=== PATIENT | female | born 1940 | race Caucasian/White ===

== ENCOUNTER → 2017-04-07 | Day surgery (SDC) | payer OTHER ==
[2017-03-13 10:33] VITALS: Ht 157.5 cm; Wt 65.9 kg
[~2017-04-07] VITALS: Ht 157.5 cm; Wt 65.9 kg
[~2017-04-07] MED LIST: 500ML BSS 0.3ML EPI 1:1000PF IRRIG ONE; ACETAMINOPHEN 325 MG TAB PO PRN; AMVISC PLAIN 0.8ML SYRINGE INT OCU ONE; AMVISC PLUS 0.8ML SYRINGE INT OCU ONE; ASCA500 PO; ATROPINE SULFATE 0.1 MG/ML 5ML SYR IV PRN; BSS FLUSH ONE; CHOL1000 PO; EpHEDrine SULFATE INJ 50 MG/ML AMP IV PRN; EpINEphrine INJ 1MG/ML AMP 1 MG/ML AMP ONE; LACTATED RINGER'S 1000ML 500 ML IV SCH; LIDOCAINE 3.5% OPH GEL PER APPLICATION CHARGE ONE; LIDOCAINE HCL 1% MPF 2 ML VIAL ONE; MELA1TAB22 PO; MIDAZOLAM HCL 1 MG/ML 2ML VIAL ONE; MULT-506 PO; OMEG10007 PO; POVIDONE-IODINE OP SOLN 30 ML BTL ONE; PROPARACAINE 0.5% OP SOLN PER DROP CHARGE OPL SCH; TOBRAMYCIN/DEXAMETHASONE OPH OINT PER APPLN CHARGE ONE
[2017-04-07] MEDS: PHENYLEPHRINE HCL 2.5% OP SOLN PER DROP CHARGE OPL SCH ×2 (10:23→10:28)
[2017-04-07] MEDS: TROPICAMIDE 1% OP SOLN PER DROP CHARGE OPL SCH ×2 (10:24→10:29)
[2017-04-07] MEDS: CYCLOPENTOLATE HCL 1% OP SOLN PER DROP CHARGE OPL SCH ×2 (10:25→10:30)
[2017-04-07] MEDS: KETOROLAC 0.5% OP SOLN PER DROP CHARGE OPL SCH ×2 (10:26→10:31)
[2017-04-07] MEDS: GATIFLOXACIN OP SOLN PER DROP CHARGE OPL SCH ×2 (10:27→10:39)
--- NOTE | 2017-04-07 10:35 | History & Physical Bridge - [place] ---
H&P Re-Evaluation Bridge Note: I have examined the patient, reviewed the History & Physical and in the interval since the performance of the History & Physical I have noted the following changes of clinical significance: Diagnosis: Left Cataract Procedure: Left Cataract Removal with Lens Implant No changes noted
--- NOTE | 2017-04-07 11:08 | [facility] Operative Report ---
Operative Report Date of Service Apr 07, 2017. Operative Report 1. PREOPERATIVE DIAGNOSIS: Cataract of the left eye. 2. POSTOPERATIVE DIAGNOSIS: Same. 3. PROCEDURE: Phacoemulsification with intraocular lens implantation of the left eye. SURGEON: Dr. Harjinder Olivares. ANESTHESIA: Topical Lidocaine gel, 1% Non- Preserved intracameral Lidocaine, and monitored intravenous sedation. INDICATIONS FOR THE PROCEDURE: The patient is a 76 - year-old female with a history of cataract of the left eye causing significant visual impairment. The details of the proposed procedure were explained to the patient who asked appropriate questions and following discussion of all risks, benefits and alternatives agreed to have the procedure done. Patient had corneal astigmatism and therefore elected to have a toric lens placed. 4. OPERATION AND FINDINGS: DESCRIPTION OF PROCEDURE: After informed consent was obtained, the patient was placed in an upright position and the cornea was marked at 76 degrees using the [employer] corneal marking tool. The patient was brought to the Operating Room at the [facility]. The patient was placed in a supine position and then the left eye was prepped and draped in the usual sterile fashion for intraocular surgery. A drop of topical Lidocaine gel was placed in the operative eye. A wire lid speculum was then placed in the fornices. A corneal paracentesis was then created temporally. The Non-Preserved Lidocaine was then instilled into the anterior chamber. The anterior chamber was then pressurized with viscoelastic. A 2.0 mm clear corneal incision was then created temporally. A cystotome was inserted into the anterior chamber and used to create a tear in the anterior lens capsule. This capsular tear was then used to create a small flap and the flap was dragged in a counterclockwise direction in order to create a continuous curvilinear capsulorrhexis. Hydrodissection was accomplished with balanced salt solution. Phacoemulsification of the lens nucleus was then performed in a standard [id number] technique. The phaco time was 33 seconds with an average power of 17 %. The remaining cortical material was removed using irrigation aspiration. The capsular bag was then filled with viscoelastic. A Caleb [id number] +13.5 diopters lens was then loaded into the injector and injected into the capsular bag. The lens was aligned with the previously made corneal gutierrez. The remaining viscoelastic was removed with the irrigation aspiration handpiece. The wound was hydrated and then checked and found to be watertight. The intraocular pressure was checked and found to be adequate. The wire lid speculum was removed and the patient's face was cleaned and dried. TobraDex ointment was placed in the inferior fornix. The patient was discharged to the Recovery Room having tolerated the procedure well. There were no complications. The patient will be seen tomorrow in the office for follow-up. I attest to the content of the Intraoperative Record and any orders documented therein. Any exceptions are noted below.
--- NOTE | 2017-04-07 11:09 | Discharge Instructions-SurgCtr ---
Discharge Instructions Date of Service Apr 07, 2017. Visit Reason for Visit: Cataract Left Eye Discharge Discharge Diagnosis / Problem: cataract Discharge Goals Goal(s): Improve function Activity Recommendations Activity Limitations: per Instructions/Follow-up section Anesthesia . Post Anesthesia Instructions: If you have had General Anesthesia or IV Sedation: * Do not drive today. * Resume driving when surgeon permits. * Do not make important decisions or sign legal documents today. * Call surgeon for: 1. Temperature elevations greater than 101 degrees F. 2. Uncontrollable pain. 3. Excessive bleeding. 4. Persistent nausea and vomiting. 5. Medication intolerance (nausea, vomiting or rash). * For nausea and vomiting use only clear liquids such as: tea, soda, bouillon until nausea subsides, then gradually increase diet as tolerated. * If you have any concerns or questions, call your surgeon's office. If physician is unavailable and it is an emergency, call 911 or go to the nearest emergency room. . Diet Recommendations Home Diet: resume previous diet Procedures Procedures Performed: Left Cataract Phacoemulsification With Intraocular Lens Implant; Toric Lens Pending Studies Studies pending at discharge: no Medical Emergencies . Who to Call and When: Medical Emergencies: If at any time you feel your situation is an emergency, please call 911 immediately. . Non-Emergent Contact Non-Emergency issues call your: Senior Benefits Manager . . "Provider Documentation" section prepared by Harjinder Olivares. .
[2017-04-07 11:10] VITALS: TEMP 36.4
--- NOTE | 2017-04-07 11:27 | Anesthesia Progress Nt - [facility] ---
Anesthesia Post Op Note Date & Time Apr 07, 2017 at 11:26 Vital Signs Pain Intensity: 0 Vital Signs Past 12 Hours Date Time Temp Pulse Resp B/P (MAP) Pulse Ox O2 Delivery O2 Flow Rate FiO2 04/07/17 11:10 36.4 58 16 132/84 (100) 97 Room Air 04/07/17 10:15 36.8 54 22 118/84 (95) 97 Room Air Notes Mental Status: alert / awake / arousable, participated in evaluation Pt Amnestic to Procedure: Yes Nausea / Vomiting: adequately controlled Pain: adequately controlled Airway Patency, RR, SpO2: stable & adequate BP & HR: stable & adequate Hydration State: stable & adequate Anesthetic Complications: no major complications apparent
[2017-04-07 11:32] VITALS: BP 133/72; PULSE 63; O2SAT 100
== END | disposition home or self-care (01) ==
LOC: X.SURG 09:41
PROVIDERS: ATTEND Ophthalmology
DX: H26.9 Unspecified cataract (principal); Z87.891 Personal history of nicotine dependence

== ENCOUNTER → 2017-04-21 | Day surgery (SDC) | payer OTHER ==
[2017-04-14 09:44] VITALS: Ht 157.5 cm; Wt 65.9 kg
[~2017-04-21] VITALS: Ht 157.5 cm; Wt 65.9 kg
[~2017-04-21] MED LIST changes: +PHENYLEPHRINE HCL 10% OP SOLN PER DROP CHARGE OPR SCH; -PROPARACAINE 0.5% OP SOLN PER DROP CHARGE OPL SCH; +PROPARACAINE 0.5% OP SOLN PER DROP CHARGE OPR SCH
[2017-04-21] MEDS: PHENYLEPHRINE HCL 2.5% OP SOLN PER DROP CHARGE OPR SCH ×2 (09:34→09:39)
[2017-04-21] MEDS: TROPICAMIDE 1% OP SOLN PER DROP CHARGE OPR SCH ×2 (09:35→09:40)
[2017-04-21] MEDS: CYCLOPENTOLATE HCL 1% OP SOLN PER DROP CHARGE OPR SCH ×2 (09:36→09:41)
[2017-04-21] MEDS: KETOROLAC 0.5% OP SOLN PER DROP CHARGE OPR SCH ×2 (09:37→09:42)
[2017-04-21] MEDS: GATIFLOXACIN OP SOLN PER DROP CHARGE OPR SCH ×2 (09:38→09:47)
--- NOTE | 2017-04-21 10:00 | History & Physical Bridge - [place] ---
H&P Re-Evaluation Bridge Note: I have examined the patient, reviewed the History & Physical and in the interval since the performance of the History & Physical I have noted the following changes of clinical significance Diagnosis: Right Cataract Procedure: Right Cataract Removal with Lens Implant No changes noted
--- NOTE | 2017-04-21 10:31 | [facility] Operative Report ---
Operative Report Date of Service Apr 21, 2017. Operative Report 1. PREOPERATIVE DIAGNOSIS: Cataract of the right eye. 2. POSTOPERATIVE DIAGNOSIS: Same. 3. PROCEDURE: Phacoemulsification with intraocular lens implantation of the right eye. SURGEON: Dr. Harjinder Olivares. ANESTHESIA: Topical Lidocaine gel, 1% Non- Preserved intracameral Lidocaine, and monitored intravenous sedation. INDICATIONS FOR THE PROCEDURE: The patient is a 76 - year-old female with a history of cataract of the right eye causing significant visual impairment. The details of the proposed procedure were explained to the patient who asked appropriate questions and following discussion of all risks, benefits and alternatives agreed to have the procedure done. Patient had corneal astigmatism and therefore elected to have a toric lens placed. 4. OPERATION AND FINDINGS: DESCRIPTION OF PROCEDURE: After informed consent was obtained, the patient was placed in an upright position and the cornea was marked at 99 degrees using the [employer] corneal marking tool. The patient was brought to the Operating Room at the [facility]. The patient was placed in a supine position and then the right eye was prepped and draped in the usual sterile fashion for intraocular surgery. A drop of topical Lidocaine gel was placed in the operative eye. A wire lid speculum was then placed in the fornices. A corneal paracentesis was then created temporally. The Non-Preserved Lidocaine was then instilled into the anterior chamber. The anterior chamber was then pressurized with viscoelastic. A 2.0 mm clear corneal incision was then created temporally. A cystotome was inserted into the anterior chamber and used to create a tear in the anterior lens capsule. This capsular tear was then used to create a small flap and the flap was dragged in a counterclockwise direction in order to create a continuous curvilinear capsulorrhexis. Hydrodissection was accomplished with balanced salt solution. Phacoemulsification of the lens nucleus was then performed in a standard [id number] technique. The phaco time was 27 seconds with an average power of 18 %. The remaining cortical material was removed using irrigation aspiration. The capsular bag was then filled with viscoelastic. A Caleb [id number] +14.5 diopters lens was then loaded into the injector and injected into the capsular bag. The remaining viscoelastic was removed with the irrigation aspiration handpiece. The lens was aligned with the previously made corneal gutierrez. The wound was hydrated and then checked and found to be watertight. The intraocular pressure was checked and found to be adequate. The wire lid speculum was removed and the patient's face was cleaned and dried. TobraDex ointment was placed in the inferior fornix. The patient was discharged to the Recovery Room having tolerated the procedure well. There were no complications. The patient will be seen tomorrow in the office for follow-up. I attest to the content of the Intraoperative Record and any orders documented therein. Any exceptions are noted below.
[2017-04-21 10:32] VITALS: TEMP 36.4
--- NOTE | 2017-04-21 10:32 | Discharge Instructions-SurgCtr ---
Discharge Instructions Date of Service Apr 21, 2017. Visit Reason for Visit: Cataract Right Eye Discharge Discharge Diagnosis / Problem: cataract Discharge Goals Goal(s): Improve function Activity Recommendations Activity Limitations: per Instructions/Follow-up section Anesthesia . Post Anesthesia Instructions: If you have had General Anesthesia or IV Sedation: * Do not drive today. * Resume driving when surgeon permits. * Do not make important decisions or sign legal documents today. * Call surgeon for: 1. Temperature elevations greater than 101 degrees F. 2. Uncontrollable pain. 3. Excessive bleeding. 4. Persistent nausea and vomiting. 5. Medication intolerance (nausea, vomiting or rash). * For nausea and vomiting use only clear liquids such as: tea, soda, bouillon until nausea subsides, then gradually increase diet as tolerated. * If you have any concerns or questions, call your surgeon's office. If physician is unavailable and it is an emergency, call 911 or go to the nearest emergency room. . Diet Recommendations Home Diet: resume previous diet Procedures Procedures Performed: Right Cataract Phacoemulsification With Intraocular Lens Implant; Toric Lens Pending Studies Studies pending at discharge: no Medical Emergencies . Who to Call and When: Medical Emergencies: If at any time you feel your situation is an emergency, please call 911 immediately. . Non-Emergent Contact Non-Emergency issues call your: Windshield Repair Technician . . "Provider Documentation" section prepared by Harjinder Olivares. .
[2017-04-21 10:52] VITALS: BP 106/65; PULSE 67; O2SAT 99
--- NOTE | 2017-04-21 10:53 | Anesthesia Progress Nt - [facility] ---
Anesthesia Post Op Note Date & Time Apr 21, 2017 at 10:53 Vital Signs Pain Intensity: 0 Vital Signs Past 12 Hours Date Time Temp Pulse Resp B/P (MAP) Pulse Ox O2 Delivery O2 Flow Rate FiO2 04/21/17 10:32 36.4 57 16 119/73 (88) 95 Room Air 04/21/17 09:28 36.9 63 16 124/83 (97) 95 Room Air Notes Mental Status: alert / awake / arousable, participated in evaluation Pt Amnestic to Procedure: Yes Nausea / Vomiting: adequately controlled Pain: adequately controlled Airway Patency, RR, SpO2: stable & adequate BP & HR: stable & adequate Hydration State: stable & adequate Anesthetic Complications: no major complications apparent
== END | disposition home or self-care (01) ==
LOC: X.SURG 08:56
PROVIDERS: ATTEND Ophthalmology
DX: H26.9 Unspecified cataract (principal); M19.90 Unspecified osteoarthritis, unspecified site; Z98.890 Other specified postprocedural states; Z98.42 Cataract extraction status, left eye; Z88.1 Allergy status to other antibiotic agents; Z87.891 Personal history of nicotine dependence

== ENCOUNTER 2023-09-08 06:27 | Observation (INO) ==
--- NOTE | 2023-07-29 12:03 | PAT Medication Instructions ---
Medication Instructions Date of Service July 29, 2023 Home Medications multivitamin with minerals (Multiple Vitamin-Minerals tablet) 1 tab PO QAM amlodipine 5 mg tablet 5 mg PO QAM atorvastatin 10 mg tablet 10 mg PO HS cetirizine 10 mg capsule (Zyrtec) 10 mg PO DAILY PRN guaifenesin 600 mg tablet, extended release 12 hr (Mucinex) 600 mg PO Q12H PRN magnesium oxide 400 mg PO QAM biotin 5 mg tablet 5 mg PO QAM calcium carbonate 600 mg-vitamin D3 5 mcg (200 unit) tablet 1 tab PO QAM ibuprofen 200 mg tablet (Advil) 200 mg PO Q6H PRN levothyroxine 25 mcg tablet 25 mcg PO QAM ASK your surgeon for instructions ibuprofen 200 mg tablet (Advil) 200 mg PO Q6H PRN STOP taking 2 weeks before surgery (or as soon as possible if surgery is within 2 weeks) biotin 5 mg tablet 5 mg PO QAM DO NOT take the morning of surgery multivitamin with minerals (Multiple Vitamin-Minerals tablet) 1 tab PO QAM cetirizine 10 mg capsule (Zyrtec) 10 mg PO DAILY PRN guaifenesin 600 mg tablet, extended release 12 hr (Mucinex) 600 mg PO Q12H PRN magnesium oxide 400 mg PO QAM calcium carbonate 600 mg-vitamin D3 5 mcg (200 unit) tablet 1 tab PO QAM Take morning of surgery With a small sip of water, OTHERWISE NOTHING TO EAT OR DRINK AFTER MIDNIGHT: amlodipine 5 mg tablet 5 mg PO QAM levothyroxine 25 mcg tablet 25 mcg PO QAM Take evening before surgery atorvastatin 10 mg tablet 10 mg PO HS guaifenesin 600 mg tablet, extended release 12 hr (Mucinex) 600 mg PO Q12H PRN Other Notes If you have any questions please call us at [phone] or [phone] or [phone] or [phone]
--- NOTE | 2023-08-05 11:14 | Anesthesiology Consultation ---
Date of Service August 05, 2023 Assessment & Plan (1) Encounter for pre-operative examination: Chart Review Chart Review: Acceptable Risk for Surgery and Patient NOT seen in Pre Admission Testing - Patient is NOT an ideal OPJ candidate (currently 23 hour obs) Per PAT appt on 08/05/23, no recent illness/disease exposures, illness related symptoms, or recent illness/disease positive tests. Will leave to surgeon's discretion if preop Covid testing needed Patient seen by cardiology 04/22/23= seen for follow up on symptomatic short episodes of paroxysmal atrial tachycardia (average HR 130-150 bpm lasting upwards of 30 seconds), resting SB without evidence of chronotropic incompetence by Holter monitor 2021; preserved biventricular size and function by 2021 ECHO. Unfortunately recently diagnosed with adenocarcinoma of the lung after incidental finding on imaging. Started chemo yesterday; also doing XRT. Planning on having hip surgery after she gets through chemo. From cardiac perspective- patient is stable. Not having worsening palpitations; HR is too low for AV ladonna blockers. Will have repeat ECHO prior to starting durvalumab; EKG today reviewed. Would like to have hip surgery after chemo. Can ascend a flight of stairs and achieve 4 METS. Not having concerning anginal symptoms. Assuming her ECHO is stable, she is a moderate risk for cardiac complications perioperatively. She does not need further cardiac testing prior to surgery. Follow up in six months ( ECHO from 06/2023 showed no acute issues; no changes from 2021) Robotic Bronch with EBUS 03/03/23= Done under [facility] with Grade 1 view with Khan #2. ETT #8.0. Teaching & Discussion Pre-Anesthesia Teaching/Discussion Notes: Instructed NPO after midnight before surgery,except medications with 15 cc of water. Medication instructions provided according to the PAT guidelines. History Surgery Operation Date: 09/08/23 07:00 Proposed Procedures p Right Total Hip Arthroplasty - Riley Dee MD Height/Weight Height: 5 ft 1 in Weight: 63.2 kg Allergies Allergy/AdvReac Type Severity Reaction Status Date / Time tetracycline AdvReac Intermediate GI UPSET Verified 07/23/23 09:01 Medications Home Medications Medication Instructions Recorded Confirmed Last Taken multivitamin with minerals 1 tab PO QAM 09/11/20 07/23/23 03/02/23 09:00 (Multiple Vitamin-Minerals tablet) amlodipine 5 mg tablet 5 mg PO QAM 03/02/23 07/23/23 03/03/23 09:00 atorvastatin 10 mg tablet 10 mg PO HS 03/02/23 07/23/23 03/02/23 23:00 cetirizine 10 mg capsule (Zyrtec) 10 mg PO DAILY PRN seasonal 05/26/23 07/23/23 Unknown allergies guaifenesin 600 mg tablet, 600 mg PO Q12H PRN chest congestion 05/26/23 07/23/23 Unknown extended release 12 hr (Mucinex) magnesium oxide 400 mg PO QAM 06/04/23 07/23/23 Unknown biotin 5 mg tablet 5 mg PO QAM 07/23/23 07/23/23 Unknown calcium carbonate 600 mg-vitamin 1 tab PO QAM 07/23/23 07/23/23 Unknown D3 5 mcg (200 unit) tablet ibuprofen 200 mg tablet (Advil) 200 mg PO Q6H PRN Pain 07/23/23 07/23/23 Unknown levothyroxine 25 mcg tablet 25 mcg PO QAM 07/23/23 07/23/23 Unknown Past Medical History Medical History (Updated 08/06/23 @ 09:47 by Janie Patel, PA-C) Cardiac murmur no issues - follows with Dr Venegas mild to moderate TR per 2023 ECHO no significant cardiac murmur per 08/05/23 PAT appt History of COVID-27 February 2021 - mild flu symptoms. resolved. HTN (hypertension) Hyperlipidemia Hypothyroidism Malignant neoplasm of upper lobe of right lung - treated with chemotherapy and radiation. last treatment was 06/04/23. currently doing immunotherapy, last infusion on 07/21/23 [facility]. - currently stable Meningioma 10mm brain lesion per 02/2023 MRI- unchanged from 2021- typical findings for meningioma Per PCP record 12/17/21- did see neurosurgeon- suggested consideration of XRT but patient declines due to no symptoms Gets annual MRI of the brain Multicystic kidney disease Follows with [facility] Paroxysmal atrial tachycardia Chronic (20+ years); Follows with Dr. Venegas Stable and controlled Exercise / Class Metabolic Activity III < 4 Walking/Shop/Light housework (one flight of stairs - no chest pain, mild SOB (chronic)) Past Family History Family History Mother , 85yo Alzheimer disease Breast cancer Father , 94yo Prostate cancer PVD (peripheral vascular disease) Brother Epilepsy CREST variant of scleroderma Daughter No problems noted. Daughter No problems noted. Other No family history of adverse response to anesthesia Past Surgical History Surgical History History of bronchoscopy (03/03/23) Dr Henley at [facility] Hx of bilateral cataract extraction Hx of colonoscopy Past Anesthesia History No Hx of Anesthesia Complications History of PONV No Hx of PONV and No Hx of Motion Sickness Social History Smoking Status: Former smoker tobacco type: cigarettes Smoking cigarettes per day: 1 PPD x 40 yrs; Do You Dip or Chew Tobacco: No Smoking End Date: Hx Alcohol Use: No (hx- no longer drinks (quit 2009)) Hx Substance Use: No substance use type: does not use Review of Systems - Chronic palpitations - intermittent/mild- cardiology aware- stable - Chronic cough- due to heat- stable/mild Patient denies chest pain, shortness of breath, dyspnea on exertion, reflux, wheezing No hx of seizures, stroke, OR, apnea/snoring. No hx of blood clots or blood transfusions Physical Exam Vital Signs VITALS BP 101/69 (usually BP low normal- no symptoms per patient) P 70 TEMP 97.7 SP02 98% RESP 16 Constitutional no acute distress ENMT Mouth: + small oral opening; no TMJ clicking Thyromental Distance: > or= 3.5 Finger Breadths (3.5) Mallampati Class: III Neck neck extension not limited Respiratory normal respiratory effort; no respiratory distress Auscultation: lungs clear to auscultation bilaterally; no wheezes Cardiovascular Rate/Rhythm: regular rate and regular rhythm Heart Sounds: no murmur Vessels: no carotid bruit Musculoskeletal Spine: no pain with cervical ROM Extremities: extremities normal to inspection Psychiatric Orientation: alert Lab Results Anesthesia Preop Results Results Anesthesia Widget: WBC 6.73 K/ul (4.8-10.8) 08/05/23 Hgb 12.0 g/dl (12.0-16.0) 08/05/23 Hct 37.1 % (37.0-47.0) 08/05/23 Plt 347 K/uL (130-400) 08/05/23 Na 138 mmol/L (136-145) 07/20/23 K 4.5 mmol/L (3.5-5.1) 07/20/23 Cl 105 mmol/L (98-107) 07/20/23 CO2 27 mmol/L (21-32) 07/20/23 BUN 26 mg/dl (6-23) H 07/20/23 Creat 1.35 mg/dl (0.6-1.2) H 07/20/23 Glucose Level 95 mg/dl (70-99(Fasting)) 07/20/23 PT 10.5 Seconds (9.0-12.0) 08/05/23 PTT 29 Seconds (21-31) 08/05/23 INR 1.0 (0.9-1.1) 08/05/23 TSH 4.660 uIu/ml (0.300-4.500) H 07/20/23 Blood Type A Positive 08/05/23 Antibody Screen NEGATIVE 08/05/23 Testing Laboratory Results Mildly elevated creatinine- chronic and stable Minimally elevated TSH (improved from 06/22/23 - TSH 9.330 at that time) Electrocardiogram Date: 04/22/23 Findings: + SB @ (57bpm) and + no change from (July 12, 2021- per cardio ) Left axis deviation Chest X-Ray Date: 03/03/23 FINDINGS: Cardiac silhouette is enlarged. Pulmonary emphysema. Right upper lobe lesion redemonstrated with fiducial marker previously measured 4.4 cm on the prior CT. No postprocedural pneumothorax or pleural effusion. The bones appear grossly intact. Healed chronic left proximal humeral fracture deformity. IMPRESSION: 1. Right upper lobe mass redemonstrated, now with a fiducial marker status post biopsy. 2. No postprocedural pneumothorax. 3. Emphysema. (Patient declining updated CXR at [facility] appt 08/06/23- breathing stable, no acute issues on physical exam- will leave to anesthesiologist discretion DOS if repeat CXR needed) Echocardiogram Date: 06/22/23 EF: 60% LV Function: normal RWMA: + none Other Findings: + LVH (mild/concentric ) and + diastolic dysfunction (Grade I ) Normal RV size with low normal function Mild to moderate TR Normal estimated PASP, estimated PASP 28mmHg Compared to previous study 08/16/2021- no significant change Other Testing PET scan 03/25/23= Right upper lobe pulmonary nodule demonstrates FDG uptake. No evidence of metastatic disease is seen. Brain MRI 03/09/23= No acute intracranial abnormality. A 10 mm enhancing extra- axial lesion along the high left frontal convexity is unchanged and typical for a meningioma. There is no associated mass effect.
--- NOTE | 2023-09-04 13:26 | History & Physical Report ---
Date of Service September 04, 2023 Assessment & Plan (1) Arthritis of right hip: 83-year-old female with advanced right hip arthritis with a underlying known adenocarcinoma of the lung. Her hips are not significantly limiting her activities. She is undergoing treatment for this a lung cancer as well. Plan: We talked about treatment options. There is not a whole lot of conservative care that she can provided short of using assistive device. She does have this lung cancer issue which she is being treated for. After further discussion she like to proceed with hip replacement. I will proceed with a right total hip replacement. The risks Mente this procedure explained and she understands. Will likely use cement fixes stem due to osteoporosis. She is planning on being discharged to home using [facility]. She lives by herself but her daughter can assist in her care. Will plan on aspirin for DVT prophylaxis. (2) Malignant neoplasm of right upper lobe of lung: History of Present Illness Chief Complaint: . Progressive right hip pain. Primary Care Provider: Willow Yin MD . Patient is an 83-year-old female with who presents for right hip treatment. She has about a year to year and a half history of increasing progressive right groin and thigh in the hip pain that radiates down to her knee. Gotten markedly worse over the past 6 to 7 months. She is actually resorted to using a cane due to the pain. Says she is been quite active and this is really limited her mobility and lifestyle. She lives by herself and have more difficulty doing this. She like to have her right hip fixed. Allergies Allergy/AdvReac Type Severity Reaction Status Date / Time tetracycline AdvReac Intermediate GI UPSET Verified 08/26/23 15:29 Home Medications Medication Instructions Recorded Confirmed Type amlodipine 5 mg tablet 5 mg PO QAM 03/02/23 08/26/23 History atorvastatin 10 mg tablet 10 mg PO HS 03/02/23 08/26/23 History cetirizine 10 mg capsule (Zyrtec) 10 mg PO DAILY PRN seasonal 05/26/23 08/26/23 History allergies guaifenesin 600 mg tablet, 600 mg PO Q12H PRN chest congestion 05/26/23 08/26/23 History extended release 12 hr (Mucinex) magnesium oxide 400 mg PO QAM 06/04/23 08/26/23 History biotin 5 mg tablet 5 mg PO QAM 07/23/23 08/26/23 History calcium carbonate 600 mg-vitamin 1 tab PO QAM 07/23/23 08/26/23 History D3 5 mcg (200 unit) tablet ibuprofen 200 mg tablet (Advil) 200 mg PO Q6H PRN Pain 07/23/23 08/26/23 History levothyroxine 25 mcg tablet 25 mcg PO QAM 07/23/23 08/26/23 History Past Med/Surg History Problem List Arthritis of right hip History of bronchoscopy 03/03/23 Malignant neoplasm of right upper lobe of lung (Chronic 03/03/23) Multicystic kidney disease Follows with [facility] (creat normal per records) Medical History Cardiac murmur no issues - follows with Dr Venegas mild to moderate TR per 2023 ECHO no significant cardiac murmur per 08/05/23 PAT appt History of COVID-27 February 2021 - mild flu symptoms. resolved. Hypothyroidism Multicystic kidney disease Follows with [facility] Malignant neoplasm of upper lobe of right lung - treated with chemotherapy and radiation. last treatment was 06/04/23. currently doing immunotherapy, last infusion on 07/21/23 [facility]. - currently stable Meningioma 10mm brain lesion per 02/2023 MRI- unchanged from 2021- typical findings for meningioma Per PCP record 12/17/21- did see neurosurgeon- suggested consideration of XRT but patient declines due to no symptoms Gets annual MRI of the brain Hyperlipidemia Paroxysmal atrial tachycardia Chronic (20+ years); Follows with Dr. Venegas Stable and controlled HTN (hypertension) Surgical History History of bronchoscopy (03/03/23) Dr Henley at [facility] Hx of colonoscopy Hx of bilateral cataract extraction Family History Mother , 85yo Alzheimer disease Breast cancer Father , 94yo Prostate cancer PVD (peripheral vascular disease) Brother Epilepsy CREST variant of scleroderma Daughter No problems noted. Daughter No problems noted. Other No family history of adverse response to anesthesia Social History Smoking Status: Former smoker Tobacco Type: Cigarettes Cigarettes Per Day: 1 PPD x 40 yrs;; Second Hand Exposure: No; Do You Dip or Chew Tobacco: No; Hx Alcohol Use: No (hx- no longer drinks (quit 2009)) Hx Substance Use: No Preferred Language: Romansh Communication Ability: Effective Visual Impairment: No Limitations Hearing Ability: Normal Mail Technician Required: No Beliefs That Will Affect Care: None marital status: / Current Living Situation: Alone current occupational status: retired current occupation: Homemaker How many Children do You have: 2 Feels Safe at Home: Yes Diet: regular caffeine: Yes (2 cups/day) during the past year weight has: remained stable Assistive Devices: Hearing Aid - Bilateral Review of Systems All systems reviewed & are unremarkable except as noted in HPI & below. Physical Exam . Patient reveals a pleasant healthy spry female. Examination of the right hip reveal patient ambulates with a onto antalgic gait. She is about half centimeter shorter in the right compared to the left. She is got limited hip motion with pain. Internal rotation to neutral. No knee effusion. She is neurologically intact. Constitutional WD/WN, vitals as above Neck trachea midline, no thyromegaly Respiratory normal respiratory effort, lungs clear to auscultation Cardiovascular RRR, no murmur, no edema Gastrointestinal (Abdomen) normal bowel sounds, soft, nontender, no hepatosplenomegaly Results & Data Results & Data Laboratory Results . Diagnostic Findings . X-rays of the right hip were reviewed. Shows advanced hip arthritis. She got cystic changes on both sides of the joint. Complete loss of the joint space. At this is progressed markedly since her last films. Diffuse osteopenia. PG Care Time/CCT Total # of Minutes Spent Total Time Spent with Patient: Total time spent is greater than 50% in coordination of care (as documented) at patient's floor/unit and/or counseling patient: Coding Level of Care Code None Diagnoses Arthritis of right hip M16.11 Malignant neoplasm of right upper lobe of lung C34.11
[~2023-09-08 06:27] MED LIST changes: -500ML BSS 0.3ML EPI 1:1000PF IRRIG ONE; -ACETAMINOPHEN 325 MG TAB PO PRN; -AMVISC PLAIN 0.8ML SYRINGE INT OCU ONE; -AMVISC PLUS 0.8ML SYRINGE INT OCU ONE; -ASCA500 PO; -ATROPINE SULFATE 0.1 MG/ML 5ML SYR IV PRN; -BSS FLUSH ONE; +BUPIVACAINE 0.5 % 5 MG/1 ML PF 10ML VIAL ONE; -CHOL1000 PO; -EpHEDrine SULFATE INJ 50 MG/ML AMP IV PRN; -EpINEphrine INJ 1MG/ML AMP 1 MG/ML AMP ONE; -LACTATED RINGER'S 1000ML 500 ML IV SCH; -LIDOCAINE 3.5% OPH GEL PER APPLICATION CHARGE ONE; -LIDOCAINE HCL 1% MPF 2 ML VIAL ONE; -MELA1TAB22 PO; -MIDAZOLAM HCL 1 MG/ML 2ML VIAL ONE; -MULT-506 PO; -OMEG10007 PO; -PHENYLEPHRINE HCL 10% OP SOLN PER DROP CHARGE OPR SCH; -POVIDONE-IODINE OP SOLN 30 ML BTL ONE; -PROPARACAINE 0.5% OP SOLN PER DROP CHARGE OPR SCH; -TOBRAMYCIN/DEXAMETHASONE OPH OINT PER APPLN CHARGE ONE
--- NOTE | 2023-09-08 06:46 | History & Physical Bridge Note ---
Date of Service September 08, 2023 History & Physical Bridge Note I have examined the patient, reviewed the History & Physical and in the interval since the performance of the History & Physical I have noted the following changes of clinical significance: no changes noted
[2023-09-08] MEDS: ACETAMINOPHEN 500 MG TAB PO SCH ×2 (06:52→14:46)
[2023-09-08] MEDS: dexAMETHasone**PF** 10 MG/ML VIAL IV SCH (06:52)
[2023-09-08] MEDS: LR 60ML/HR IV SCH (06:53)
[2023-09-08] MEDS: FAMOTIDINE 20 MG TAB PO SCH (06:53)
[2023-09-08] MEDS: METOCLOPRAMIDE HCL 10 MG TABLET PO SCH (06:53)
[2023-09-08] MEDS: CeleBREX 200 MG CAP PO SCH (06:53)
[2023-09-08] MEDS: LR 500ML BOLUS, THEN 15ML/HR IV SCH (07:25)
[2023-09-08] MEDS ORDERED: ONDANSETRON INJ 2 MG/ML 2 ML VIAL IV PRN ×2 (08:05→13:29)
[2023-09-08] MEDS ORDERED: ePHEDrine sulfate 50 MG/ML AMP IV PRN (08:05)
[2023-09-08] MEDS ORDERED: fentaNYL citrate PF 100 MCG/2 ML VIAL IV PRN (08:05)
[2023-09-08] MEDS ORDERED: ATROPINE SULFATE 0.1 MG/ML 10ML SYR IV PRN (08:05)
[2023-09-08] MEDS ORDERED: MIDAZOLAM HCL 1 MG/ML 2ML VIAL ONE (08:38)
[2023-09-08] MEDS: TRANEXAMIC ACID 1,000 MG **IV Pre-op IV SCH (08:40)
[2023-09-08] MEDS: ceFAZolin 2000MG 2,000 MG/15 ML SYR IV SCH (09:01)
[2023-09-08] MEDS ORDERED: LIDOCAINE 2% 2 ML VIAL/AMP(20MG/ML) INFIL ONE (09:53)
[2023-09-08] MEDS ORDERED: PHENYLEPHRINE 100MCG/ML 10ML SYR IV ONE (09:53)
[2023-09-08] MEDS ORDERED: VASOPRESSIN 20 UNIT/ML VIAL ONE (09:53)
[2023-09-08] MEDS ORDERED: PROPOFOL IV EMULSION 10 MG/ML 20 ML VIAL IV ONE (09:53)
[2023-09-08] MEDS: BUPIVACAINE/EPINEPHRINE 0.5% MPF 1:200,000 30 ML VIAL ONE (09:56)
--- NOTE | 2023-09-08 11:10 | Operative Report ---
PG Post Operative Report Pre & Post Diagnosis Operation Date: 09/08/23 08:50 Pre-Op Diagnosis: Right Hip Degenerative Joint Disease Post-Op Diagnosis: Right Hip Degenerative Joint Disease I identified the patient and participated in the time-out.: Yes Procedure Operation Date: 09/08/23 08:50 Actual Procedures p Right Total Hip Arthroplasty, Cemented - Riley Dee MD Surgeon Riley Dee MD Pack Out Operator None Estimated Blood Loss 100 Findings Consistent with Post-Op Diagnosis Specimens Right femoral head sent for pathology Anesthesia Type Spinal MAC Complications none Disposition Accompanied Patient To Recovery: No Indications The patient is an 83-year-old fairly active and independent female who has developed increasing right hip pain discomfort over the past year. Discussed singly worse over the past 6 months. X-rays show advanced hip arthritis which has progressed over time. She failed conservative measures. She elected proceed with total hip arthroplasty. Description of Procedure Operative implants consist of: 1. Biomet G7 size 48 mm acetabular shell. 2. 6.5 cancellous acetabular screws 1 of 35 mm in length and 1 of 25 mm length. 3. Westhoff hole operational communication chief. 4. Highly cross-linked polyethylene liner with a 48 mm outer diameter and 32 mm inner diameter. 5. DePuy Comanche size 3 high offset cemented femoral stem. 6. +5/32 mm metal articular ball. The patient was taken the op room, identified, placed on the operating table in the supine position. All contractors were appropriately padded. IV antibiotics tried by anesthesia team. A spinal anesthetic and been implemented holding area. A Tiwari catheter was placed in sterile fashion. The patient was then placed in a left lateral decubitus position. Axillary roll was placed. A stool Birkett position was used for positioning. The right hip and leg were then prepped and draped in usual sterile fashion. A posterolateral approach to the right hip was then performed through a curvilinear incision centered over the greater trochanter. Sharp dissection was carried through subcutaneous tissue down over the IT band gluteal fascia but the IT band gluteal fascia was sized longitudinally in line with skin incision. The underlying greater bursa was excised. The piriformis and external rotators along with the posterior hip joint capsule were then released from the posterior aspect the hip as a single layer. Great care was taken throughout the procedure to protect the sciatic nerve at all times. The hip was internally rotated and dislocated. A femoral neck osteotomy cut was made with a Final Cut about 14 mm above the lesser trochanter. Femoral head was removed and sent for pathology. The femur was retracted anteriorly. Attention drawn the acetabulum. The acetabular labrum was excised. The pulmonary fat was excised. Sequential reaming the acetabular was then performed beginning with a size 43 and progressing up to 47. I reamed a little bit with a 48 reamer and then placed a 48 mm Biomet acetabular shell in about 40 degrees lateral opening and 20 degrees of anteversion. It was fixed with two 6.5 cancellous acetabular screws. A trial liner was placed. Attention drawn the femur. The proximal femur was entered with a Scyron cutter followed by canal finder. I did use a lateralizing reamer. I then broached beginning with a size 1 progressing up to go to. I could not quite fit the ringdown left. We did trial the hip with the size 2 implant. With the standard implant the soft tissue tension seemed a bit lax. I went to maximize her stability so we elected to use a high offset stem and use a size 3 stem. We trialed the hip and the hip was fully stable and in full extension and external rotation flexion to 90 degrees internal rotation over 40 degrees. Leg lengths appeared equal. Elect to place these implants. All trial implants were removed. An apex hole operational communication chief was placed. Highly cross-linked polyethylene liner was placed. A small cement restrictor was placed distally. A double batch Palacos G cement was mixed. I then injected the canal with the cement and a size 3 high offset Comanche femoral stem was placed. Once the cement hardened a +5/32 mm metal articular ball was placed. Hip was located and once again found to be stable. Attention drawn toward closing. The wound was irrigated with coconuts of normal saline. I did inject locally with 60 cc of half percent Marcaine with epinephrine. Posterior capsule and external rotators then repaired through drill holes in the posterior trochanter with #2 Tycron suture. The IT band gluteal fascia then closed in 1 PDS suture running fashion for subcutaneous tissue then closed with 2 Dexon suture in a buried interrupted fashion. Skin was closed skin bertha. Leg was then cleaned and dried and sterile Prevena VAC dressing was applied. The patient then transferred to the recovery room in stable condition. The patient tolerated the procedure well and there were no complications. I attest to the content of the Intraoperative Record and any orders documented therein. Any exceptions are noted below.
--- NOTE | 2023-09-08 11:52 | XRay Report ---
AP PELVIS, CROSSTABLE LATERAL RIGHT HIP History: Right total hip arthroplasty. Degenerative arthritis. Postop. FINDINGS: The patient is status post a right total hip arthroplasty. The hardware is intact. No fract ure or dislocation. Skin bertha are in place. IMPRESSION: Right total hip arthroplasty. No evidence for hardware complication ACT 112: Negative or not required by law. Electronically signed by: Lius Espino M.D. 09/08/2023 11:51 AM
--- NOTE | 2023-09-08 13:08 | Anesthesiology Progress Note ---
Date of Service September 08, 2023 Anesthesia Post Procedure Vital Signs Vital Signs: Temp Pulse Pulse Resp BP Pulse Ox O2 Del Method 09/08/23 12:55 80 14 129/82 97 Room Air 09/08/23 12:40 36.3 C L 71 16 125/64 98 Room Air 09/08/23 12:30 75 12 118/77 98 Room Air 09/08/23 12:20 76 14 125/64 97 Room Air 09/08/23 12:10 73 12 115/70 98 Room Air 09/08/23 12:00 74 12 113/62 97 Room Air 09/08/23 11:50 77 12 116/69 98 Room Air 09/08/23 11:40 76 12 113/57 L 98 Room Air 09/08/23 11:30 72 12 106/66 99 Room Air 09/08/23 11:20 74 14 112/77 100 Room Air 09/08/23 11:10 77 14 108/69 100 Oxymask 09/08/23 11:00 36.0 C L 76 16 109/61 100 Oxymask 09/08/23 06:49 36.4 C L 68 20 135/75 98 Room Air O2 Flow Rate 09/08/23 12:55 09/08/23 12:40 09/08/23 12:30 09/08/23 12:20 09/08/23 12:10 09/08/23 12:00 09/08/23 11:50 09/08/23 11:40 09/08/23 11:30 09/08/23 11:20 09/08/23 11:10 4 09/08/23 11:00 6 09/08/23 06:49 Pain Intensity Right Hip: Pain Intensity: 3 Transfer of Care Handoff Completed per policy Notes Mental Status: alert / awake / arousable and participated in evaluation Patient Amnestic to Procedure: Yes Nausea / Vomiting: adequately controlled Pain: adequately controlled Airway Patency, RR, SpO2: stable & adequate BP & HR: stable & adequate Hydration State: stable & adequate Neuraxial Anesthesia: was administered and sensory block is resolving Anesthetic Complications: no major complications apparent and Pt Satisfied with anesthetic care
[2023-09-08] MEDS ORDERED: CETIRIZINE HCL 10 MG TABLET PO PRN (13:29)
[2023-09-08] MEDS ORDERED: guaiFENesin 600 MG TABCR PO PRN (13:29)
[2023-09-08] MEDS ORDERED: METOCLOPRAMIDE HCL INJ 5 MG/ML 2 ML VIAL IV PRN (13:29)
[2023-09-08] MEDS ORDERED: NO NSAIDS SCH (13:29)
[2023-09-08] MEDS ORDERED: HYDROmorphone INJ 0.5 MG/0.5 ML SYR IV PRN (13:29)
[2023-09-08] MEDS ORDERED: bisacodyL 10 MG SUPP PR PRN (13:29)
[2023-09-08] MEDS ORDERED: NALOXONE HCL 0.4 MG/1 ML VIAL/CARP IV PRN (13:29)
[2023-09-08] MEDS ORDERED: MAGNESIUM HYDROXIDE SUSP 30 ML UDC PO PRN (13:29)
[2023-09-08] MEDS ORDERED: ALUMINUM/MAGNESIUM SUSP 30 ML UDC PO PRN (13:29)
[2023-09-08] MEDS ORDERED: ACETAMINOPHEN 500 MG TAB PO SCH (14:00)
[2023-09-08] MEDS: SODIUM CHLORIDE 0.9% 1,000 ML IV SCH (14:44)
[2023-09-08] MEDS: ceFAZolin 1000MG 1,000 MG/7.5 ML SYR IV SCH (17:02)
[2023-09-08] MEDS: TRANEXAMIC ACID / 0.7% NACL 1,000 MG/100 ML BAG IV SCH (17:10)
[2023-09-08] MEDS: ASCORBIC ACID 500 MG TAB PO SCH (18:12)
[2023-09-08] MEDS ORDERED: SENNA 8.6 MG TAB PO SCH (21:00)
[2023-09-08] MEDS: SENNA 8.6 MG TAB PO SCH (21:24)
[2023-09-08] MEDS: ATORVASTATIN 10 MG TAB PO SCH (21:25)
[2023-09-08] MEDS: DOCUSATE SODIUM 100 MG CAP PO SCH (21:25)
[2023-09-08] MEDS: ASPIRIN 81 MG ECTAB PO SCH (21:25)
[2023-09-09] MEDS: LEVOTHYROXINE SODIUM 25 MCG TABLET PO SCH (05:50)
[2023-09-09 06:31] LABS: BUN Creatinine Ratio 24.5 (10-20); Calcium 8.6 mg/dl (8.6-10.3); Creatinine Clr Calc Pharmacy 26.2 ml/min; Est GFR (African American) 39.7 ml/min; Est GFR (Non-African American) 34.3 ml/min; Potassium 4.1 mmol/L (3.5-5.1)
[2023-09-09 06:35] LABS: Basophils # (auto) 0.02 K/uL (0.00-0.20); Basophils % (auto) 0.2 %; Eosinophils # (auto) 0.01 K/uL (0.00-0.50); Eosinophils % (auto) 0.1 %; Hematocrit (blood only) 29.7 % (37.0-47.0); Hemoglobin 10.1 g/dl (12.0-16.0); Immature Granulocytes # (auto) 0.03 K/uL (0.01-0.20); Immature Granulocytes % (auto) 0.3 %; Lymphocytes % (auto) 6.1 %; Mean Corpuscular Hemoglobin 29.2 pg (25.0-34.0); Mean Corpuscular Volume 85.8 fL (80.0-100.0); Mean Platelet Volume 10.9 fL (9.4-12.4); Monocytes # (auto) 1.12 K/uL (0.11-0.59); Monocytes % (auto) 9.8 %; Neutrophils # (auto) 9.53 K/uL (1.40-6.50); Neutrophils % (auto) 83.5 %; Platelet Count 213 K/uL (130-400); RDW Coefficient of Variation 12.7 % (11.5-14.5); RDW Standard Deviation 39.5 fL (36.4-46.3); Red Blood Count 3.46 M/uL (4.20-5.40); White Blood Count 11.41 K/ul (4.8-10.8)
[2023-09-09] MEDS: CALCIUM 600MG + VIT D 400 IU TAB PO SCH (08:00)
[2023-09-09] MEDS: amLODIPine BESYLATE 5 MG TAB PO SCH (08:00)
[2023-09-09] MEDS: dexAMETHasone 10 MG in SYRINGE 0 ML IV SCH (08:00)
[2023-09-09] MEDS: MULTIVITAMIN TAB PO SCH (08:01)
[2023-09-09] MEDS: MAGNESIUM OXIDE 400 MG TAB PO SCH (08:01)
[2023-09-09] MEDS: traMADol HCL 50 MG TABLET PO PRN (08:10)
[2023-09-09] MEDS ORDERED: NON-FORMULARY MEDICATION (Biotin 5 mg Tablet) PO SCH (09:00)
--- NOTE | 2023-09-09 11:10 | Orthopedic Progress Note ---
Date of Service September 09, 2023 Assessment & Plan (1) Status post right hip replacement: Plan: 83-year-old female postop day 1 from a right hybrid total hip replacement. She is doing remarkably well. Pains controlled. Hips located. She is neurologically intact. Creatinines been bumped up just slightly but will encourage p.o. intake and hold all NSAIDs. Plan: 1. DVT prophylaxis including thigh-high teds, SCDs, baby aspirin twice a day. 2. PT/OT. Weight-bear as tolerated. Right total hip protocol. 3. Pain control doing well with current pain regimen. 4. Elevated creatinine. Will hold all NSAIDs other than her baby aspirin. Encourage p.o. intake. 5. Disposition plan to discharge home with some home health today. Her daughter is going to assist in her care at home. Admission and Anticipated Discharge Date Admission Date: September 08, 2023 Subjective 83-year-old female postop day 1 from hybrid total hip replacement. She is doing pretty well. Had a pretty good night. Anxious to get home. No chest pain or shortness of breath. Not feeling dizzy or lightheaded. Physical Exam Physical Exam: Physical exam shows a pleasant elderly female. Sitting up in her bedside chair and looks completely comfortable talking to her daughter. Examination of the right hip reveals a Prevena VAC dressing in place. Leg lengths are equal. Thigh is soft and supple. She is neurologically intact. Respiratory: normal respiratory effort, lungs clear to auscultation Cardiovascular: RRR, no murmur, no edema Gastrointestinal (Abdomen): normal bowel sounds, soft, nontender, no hepatosplenomegaly Results & Data Vital Signs (Past 12 Hours) Vital Signs Temp Pulse Pulse Resp BP Pulse Ox O2 Del Method 09/09/23 08:07 36.6 C 60 16 110/74 97 Room Air 09/09/23 07:11 36.8 C 50 L 16 111/70 97 Room Air 09/09/23 03:53 36.7 C 63 18 112/71 98 Room Air Laboratory Results Hemoglobin is 10.1. Hematocrit is 29.7. Electrolytes show a creatinine be slightly elevated 1.43.
== END 2023-09-09 13:07 | disposition home health service (06) ==
LOC: 3E 06:27 → ASU 06:27